=== PATIENT | male | born 1965 | race Caucasian/White ===

== ENCOUNTER → 2020-07-10 | Outpatient (CLI) | payer OTHER ==
[~2020-07-10] MED LIST: ASPI325 PO; Aspir 8181 MG PO; Percocet 5-3251 EACH PO; Prilosec20 MG PO
== END | disposition home or self-care (01) ==
LOC: LAB 17:35 → LAB SHORT 17:35
DX: R19.7 Diarrhea, unspecified (principal)
CPT/HCPCS: 87177; 87209; 87328; 87329; 87493; 89055

== ENCOUNTER 2020-09-05 11:06 | Day surgery (SDC) | payer OTHER ==
[~2020-09-05] VITALS: Ht 180.3 cm; Wt 95.0 kg
[~2020-09-05 11:06] MED LIST changes: +LANS15EC PO
--- NOTE | 2020-09-05 17:01 | NUR ---
09/05/20 1701 DENIS HUDSON LATE ENTRY PROCEDURE HAD ENDED PER EMAR FLOWSHEET. PT WAS DISCONNECTED FROM O2 SATS WERE MAINTAINED DURING PROCEDURE. THIS RN AWAITING PT TO WAKE UP. KENNETH ADEN BEGAN CLEANING ROOM. ENGAGED IN SIGN OUT FOR PROCEDURE. APPROX 9 MINUTES AFTER END OF PROCEDURE, DR. LAROSE NOTIFIED THIS RN AND KENNETH MARTINEZ THAT WE NEEDED TO RESTART PROCEDURE RANDOM COLON BXS WERE NEEDED AND NOT OBTAINED DURING THE PROCEDURE. KENNETH MARTINEZ SET UP NEW SCOPE W/ALL NEW MATERIALS SHE HAD BEGUN CLEARING HER SIDE OF THE ROOM. THIS RN BEGAN AGAIN SEDATING PT WHO WAS NOT AWAKE AT THIS TIME. CONT WITH PROPOFOL SEDATION PER EMAR FLOWSHEET. NEW START TIME OF 1332, REACHED CECUM AT 1333 FOR SECOND TIME AND THEN RANDOM COLON BXS WERE OBTAINED. WE USED A TOTAL OF TWO REGULAR BIOPSY FORCEPS DURING PROCEDURE AND THEN PROCEDURE ENDED FOR SECOND TIME AT 1338. AGAIN SIGN OUT COMPLETED FOR PROCEDURE. PT AWAKE AT 1344. TOTAL PROPOFOL FOR BOTH UPPER AND LOWER WAS 860.
== END 2020-09-05 14:10 | disposition home or self-care (01) ==
LOC: ORSCSDS 11:06
DX: R19.7 Diarrhea, unspecified (principal); K29.50 Unspecified chronic gastritis without bleeding; K31.89 Other diseases of stomach and duodenum; D12.0 Benign neoplasm of cecum; K57.30 Diverticulosis of large intestine without perforation or abscess without bleeding; K64.8 Other hemorrhoids; R10.11 Right upper quadrant pain; R11.0 Nausea
CPT/HCPCS: 88305; 88342; J2704; J7120

== ENCOUNTER → 2021-08-25 | Outpatient (CLI) | payer OTHER | LOC: LAB SHORT 11:33 → LAB 11:33 | DX: D48.5 Neoplasm of uncertain behavior of skin (principal); D22.5 Melanocytic nevi of trunk; L82.1 Other seborrheic keratosis | CPT/HCPCS: 88305 ==

== ENCOUNTER 2023-09-29 10:00 | Day surgery (SDC) | payer OTHER ==
[~2023-09-29] VITALS: Ht 185.4 cm; Wt 99.3 kg
[~2023-09-29 10:00] MED LIST changes: +B-121000 MC7 PO; +Florastor250 MG PO
[2023-09-29 13:04] VITALS: BP 141/99
== END 2023-09-29 13:02 | disposition home or self-care (01) ==
LOC: ORSCSDS 10:00
PROVIDERS: Internal Medicine Gastroenterology
PROC: 0DB78ZX Excision of Stomach, Pylorus, Via Natural or Artificial Opening Endoscopic, Diagnostic (ICD-10-PCS; principal; 2023-09-29 11:15)
DX: K29.50 Unspecified chronic gastritis without bleeding (principal); Z87.891 Personal history of nicotine dependence
CPT/HCPCS: 88305; 88341; 88342; J0461; J2001; J2405; J2704; J7120; Q9968